=== PATIENT | male | born 1945 | race Caucasian/White ===

== ENCOUNTER 2023-02-20 08:39 | Emergency (ER) | payer OTHER, SELFPAY ==
[2023-02-20] VITALS (11 sets, daily range): BP systolic 137–157; BP diastolic 80–83; PULSE 75–91; RESP 11–21; O2SAT 91–100
--- NOTE | ~2023-02-20 | XR_ITS ---
EXAMINATION: XR chest 2V 02/20/2023 09:30 INDICATION: Shortness of breath PROCEDURE: AP and lateral views of the chest COMPARISON: No prior studies for comparison. FINDINGS: There is mild pulmonary vascular congestion. The cardiomediastinal silhouette is within nor mal limits. There are no pleural effusions. There is no pneumothorax suspected. The lungs are hype rinflated which is consistent with, but not diagnostic of chronic obstructive pulmonary disease. IMPRESSION: 1: Mild pulmonary vascular congestion. Reviewed, dictated and finalized at location A.
--- NOTE | 2023-02-20 08:51 | ECG_ITS ---
Measurements Intervals [place] Rate: 83 P: 66 CT: 166 QRS: 67 QRSD: 97 T: 69 QT: 363 QTc: 428 Interpretive Statements SINUS RHYTHM DELAYED PRECORDIAL R/S TRANSITION BORDERLINE ECG NO PREVIOUS ECG AVAILABLE FOR COMPARISON Electronically Signed On 02-20-2023 9:57:02 CDT by Dilan Kelly D.O.
--- NOTE | 2023-02-20 08:57 | ED.SOB ---
HPI - SOB/Dyspnea General Chief Complaint: Shortness of Breath/Dyspnea Stated Complaint: sob Time Seen by Provider: 02/20/23 08:44 History of Present Illness HPI Narrative: Pt presents with SOB for last few days and unable to sleep due to SOB last two nights. Pt says is [id number] up yellow sputum but denies fever or chills. Pt denies CP or weight gain. Pt received neb treatment in route with EMS and feels much better. Related Data Allergies Allergy/AdvReac Type Severity Reaction Status Date / Time No Known Allergies Allergy Verified 02/20/23 08:44 Review of Systems Review of Systems: All systems reviewed & are unremarkable except as noted in HPI and below Exam Const: General: healthy appearing and no acute distress Nutritional Appearance: well nourished Orientation/consciousness: patient oriented x3 Limitations: no limitations Chest: Chest palpation & inspection: normal inspection of the chest Resp: Effort & Inspection: normal respiratory effort Auscultation: wheezes Cardio: Rate: regular rate Rhythm: regular rhythm GI: GI Palp: Yes Soft to palpation Auscultation: normal bowel sounds Skin: Rashes: no rashes Wounds: no wounds Neuro: General: patient oriented x3, moves all extremities, no meningeal signs and CN's II-XI intact bilaterally Speech: normal speech Extrem: General: edema Psych: Mental Status: mental status grossly normal Affect: normal affect Attitude: cooperative Course Vital Signs Vital signs: Vital Signs Pulse Rate 91 02/20/23 08:40 Respiratory Rate 20 02/20/23 08:40 Pulse Oximetry 96 02/20/23 08:40 Oxygen Delivery Room Air 02/20/23 08:40 Pulse Rate 75 02/20/23 11:20 Respiratory Rate 15 02/20/23 10:58 Blood Pressure 137/83 02/20/23 11:20 Pulse Oximetry 95 02/20/23 11:20 Oxygen Delivery Room Air 02/20/23 08:40 MDM - SOB/Dyspnea MDM Narrative Medical decision making narrative: cxr and labs ok pt better after nebs ok to go home on steroids and abx Differential Diagnosis Differential diagnosis: Likely acute exacerbation of chronic obstructive airways disease, congestive heart failure, community acquired pneumonia and asthma with exacerbation Medical Records Attestation: I reviewed the patient's medical records. Lab Data Attestation: I reviewed the patient's lab results. 02/20/23 08:54 02/20/23 08:54 Labs: Lab Results 02/20/23 Range/Units 08:54 WBC 7.1 (4.5-10.0) K/mm3 RBC 5.70 (4.6-6.20) M/mm3 Hgb 16.7 (14.0-18.0) g/dL Hct 51.0 (42.0-52.0) % MCV 89.5 (80-100) fl MCH 29.3 (26-34) pg MCHC 32.7 (32-36) g/dl RDW 14.5 (11.5-14.5) % Plt Count 210 (150-375) k/mm3 MPV 9.2 (7.4-10.4) fl Immature Gran % (Auto) 0.4 (0-0.5) % Neut % (Auto) 62.7 (45.5-73.1) % Lymph % (Auto) 20.5 (18.3-44.2) % Isabela % (Auto) 9.4 H (2.6-8.5) % Eos % (Auto) 5.9 H (0-4.4) % Baso % (Auto) 1.1 (0.2-1.2) % Lymph # (Auto) 1.45 (0.9-3.2) K/mm3 Isabela # (Auto) 0.7 H (0.1-0.6) K/mm3 Eos # (Auto) 0.4 H (0-0.3) K/mm3 Baso # (Auto) 0.1 (0.0-0.1) K/mm3 Abs Immat Gran (auto) 0.03 (0.00-0.031) K/mm3 Absolute Neuts (auto) 4.4 (1.3-6.7) K/mm3 Absolute Nucleated RBC 0.0 (0.0-0.012) K/mm3 Nucleated RBC % 0.0 (0.0-0.2) % Sodium 139 (137-145) mmol/L Potassium 4.7 (3.4-5.0) mmol/L Chloride 105 (98-107) mmol/L Carbon Dioxide 28 (22-30) mmol/L Anion Gap 6 L (8-16) mmol/L BUN 15 (9-20) mg/dL Creatinine 0.90 (0.7-1.3) mg/dL Estim Creat Clear Calc 83 ml/min Estimated GFR > 60 (59 - ) Glucose 110 (65-110) mg/dL Calcium 9.0 (8.4-10.2) mg/dL Total Bilirubin 0.8 (0.2-1.3) mg/dL AST 34 (17-59) U/L ALT 20 (6-50) U/L Alkaline Phosphatase 63 (38-126) U/L NT-Pro-B Natriuret Pep 287 H (19.9-100) pg/mL Total Protein 9.0 H (6.3-8.2) g/dL Albumin 4.4 (3.5-5.1) g/dL ECG Data EKG #1: Interpretation: nsr rate 83. no st or t wave ch
[2023-02-20 09:06] LABS: Basophils Absolute Auto 0.1 K/mm3 (0.0-0.1); Basophils Percent Auto 1.1 % (0.2-1.2); Eosinophils Absolute Auto 0.4 K/mm3 (0-0.3); Eosinophils Percent Auto 5.9 % (0-4.4); Hemoglobin 16.7 g/dL (14.0-18.0); Immature Granulocyte Absolute 0.03 K/mm3 (0.00-0.031); Immature Granulocyte Percent A 0.4 % (0-0.5); Lymphocytes Absolute Auto 1.45 K/mm3 (0.9-3.2); Lymphocytes Percent Auto 20.5 % (18.3-44.2); Mean Corpuscular HGB Conc 32.7 g/dl (32-36); Mean Corpuscular Hemoglobin 29.3 pg (26-34); Mean Corpuscular Volume 89.5 fl (80-100); Mean Platelet Volume 9.2 fl (7.4-10.4); Monocytes Absolute Auto 0.7 K/mm3 (0.1-0.6); Monocytes Percent Auto 9.4 % (2.6-8.5); Neutrophils Absolute Auto 4.4 K/mm3 (1.3-6.7); Neutrophils Percent Auto 62.7 % (45.5-73.1); Platelet Count Result 210 k/mm3 (150-375); Red Cell Distribution Width 14.5 % (11.5-14.5); White Blood Count 7.1 K/mm3 (4.5-10.0)
[2023-02-20 09:15] LABS: Alanine Aminotransferase 20 U/L (6-50); Albumin Level 4.4 g/dL (3.5-5.1); Alkaline Phosphatase 63 U/L (38-126); Anion Gap 6 mmol/L (8-16); Aspartate Amino Transferase 34 U/L (17-59); Bilirubin,Total 0.8 mg/dL (0.2-1.3); Blood Urea Nitrogen 15 mg/dL (9-20); Carbon Dioxide 28 mmol/L (22-30); Chloride 105 mmol/L (98-107); Estimated CRCL calculation 83 ml/min; Estimated Glomerular Filt Rate > 60; Glucose 110 mg/dL (65-110); Potassium 4.7 mmol/L (3.4-5.0); Sodium 139 mmol/L (137-145)
[2023-02-20 10:14] LABS: NT Pro B Type Natriuretic Pept 287 pg/mL (19.9-100)
[2023-02-20] MEDS: ALBUTEROL SULFATE NEB 2.5 MG/3 ML INH INHALATION (10:45)
--- NOTE | 2023-02-20 11:22 | PC.NURSE ---
Attempted to call [facility] regarding patient return without answer. patient discharged with daughter at this time.
== END 2023-02-20 11:22 ==
PROVIDERS: Emergency Provider Emergency Medicine; PCP Nurse Practitioner
DX: J44.1 Chronic obstructive pulmonary disease with (acute) exacerbation (principal)
CPT/HCPCS: 36415; 71046; 80053; 83880; 85025; 93005; 94640; 99284